=== PATIENT | male | born 1980 | race Caucasian/White ===

== ENCOUNTER 2018-11-14 14:35 | Emergency (ER) | payer BC ==
--- NOTE | 2018-11-14 14:49 | EDM.PDOC ---
ED HPI GENERAL MEDICAL PROBLEM - General Chief Complaint: ENT Problem Stated Complaint: THROAT SWELLING Time Seen by Provider: 11/14/18 14:44 Source of Information: Reports: Patient History Limitations: Reports: No Limitations - History of Present Illness INITIAL COMMENTS - FREE TEXT/NARRATIVE: HISTORY AND PHYSICAL: History of present illness: Patient is a 38-year-old male who presents to the emergency room with complaints of throat pain x 24 hours. He states he feels like his throat is swelling and is concerned he has strep throat. Reports he has had strep throat in the past and had similar symptoms at that time. He has been using NyQuil to help alleviate his symptoms but still has discomfort. States when he is laying flat he feels the swelling causes him to cough. Reports he has had a cough for several weeks, nonproductive. He is a daily smoker. He denies any fever, chills, chest pain, shortness of breath or cough. He denies any abdominal pain, nausea, vomiting, diarrhea, constipation or dysuria. He has been able to eat and drink appropriately. Review of systems: As per history of present illness and below otherwise all systems reviewed and negative. Past medical history: As per history of present illness and as reviewed below otherwise noncontributory. Surgical history: As per history of present illness and as reviewed below otherwise noncontributory. Social history: See social history for further information Family history: As per history of present illness and as reviewed below otherwise noncontributory. Physical exam: General: Well-developed and well-nourished 38-year-old male. Alert and oriented. Nontoxic appearing and in no acute distress. HEENT: Atraumatic, normocephalic, pupils equal and reactive bilaterally, negative for conjunctival pallor or scleral icterus, mucous membranes moist, TMs normal bilaterally, throat erythematous but clear without exudate, neck supple, nontender, trachea midline. No drooling or trismus noted. No meningeal signs. No hot potato voice noted. Lungs: Diminished otherwise clear, breath sounds equal bilaterally, chest nontender. Dry nonproductive cough noted, induced with deep breaths. Heart: S1S2, regular rate and rhythm without overt murmur Abdomen: Soft, nondistended, nontender. Negative for masses or hepatosplenomegaly. Negative for costovertebral tenderness. Pelvis: Stable nontender. Genitourinary: Deferred. Rectal: Deferred. Skin: Intact, warm, dry. No lesions or rashes noted. Extremities: Atraumatic, negative for cords or calf pain. Neurovascular unremarkable. Neuro: Awake, alert, oriented. Cranial nerves II through XII unremarkable. Cerebellum unremarkable. Motor and sensory unremarkable throughout. Exam nonfocal. Notes: Patient declines x-ray at this time. We'll do a strep screening, he is agreeable. Patient is adamant that this is early strep. Patient states he declines any need for steroids as he reports this flares his psoriasis. Due to the patient's coughing and smoking history will treat with Z-Aaron as he is allergic to penicillins. Supportive care measures were reviewed and discussed. He voices understanding and agreeable to plan of care. Denies any further questions or concerns at this time. Diagnostics: Strep Therapeutics: None Prescription: Zpack Tylenol #3 (#10) Impression: Pharyngitis Plan: 1. Stop smoking. Please take the antibiotic as prescribed. 2. Tylenol and/or ibuprofen as needed for pain and fever management. You may use [id number] lozenges for throat pain relief. Warm saltwater gargle rinses spit 3-4 times daily. Please continue toothbrush once you have started the antibiotic to avoid reinfection. 3. Please follow-up with your primary care provider and oriented the nuclear chemistry technician in the next 1-2 days. Return to the ED as needed and as discussed. Definitive disposition and diagnosis as appropriate pending reevaluation and review of above. Throat Pain Score (Numeric/FACES): 8 - Related Data Allergies Allergy/AdvReac Type Severity Reaction Status Date / Time Penicillins Allergy Anaphylactic Verified 11/14/18 14:42 Shock Home Meds: Home Meds . [No Known Home Meds] 11/14/18 [History] Past Medical History Dermatologic History: Reports: Other (See Below) Other Dermatologic History: psoriasis. - Infectious Disease History Infectious Disease History: Reports: None Social & Family History - Family History Family Medical History: Noncontributory - Tobacco Use Smoking Status *Q: Current Every Day Smoker Years of Tobacco use: 20 Packs/Tins Daily: 0.5 - Caffeine Use Caffeine Use: Reports: Coffee, Soda - Recreational Drug Use Recreational Drug Use: No ED ROS ENT - Review of Systems Review Of Systems: ROS reveals no pertinent complaints other than HPI. ED EXAM, ENT - Physical Exam Exam: See Below (See dictation) Course - Vital Signs Last Recorded V/S: Last Vital Signs Temp 98.9 F 11/14/18 14:42 Pulse 89 11/14/18 14:42 Resp 15 11/14/18 14:42 BP 127/81 11/14/18 14:42 Pulse Ox 96 11/14/18 14:42 - Orders/Labs/Meds Orders: Active Orders 24 hr Category Date Time Status CULTURE STREP A CONFIRMATION [RM] Stat Lab 11/14/18 15:00 Results STREP SCRN A RAPID W CULT CONF [RM] Stat Lab 11/14/18 15:00 Results Departure - Departure Time of Disposition: 15:19 Disposition: Home, Self-Care 01 Clinical Impression: Pharyngitis Qualifiers: Pharyngitis/tonsillitis etiology: unspecified etiology Qualified Code(s): J02.9 - Acute pharyngitis, unspecified - Discharge Information Instructions: Pharyngitis, [id number] Forms: ED Department Discharge Additional Instructions: The following information is given to patients seen in the emergency department who are being discharged to home. This information is to outline your options for follow-up care. We provide all patients seen in our emergency department with a follow-up referral. The need for follow-up, as well as the timing and circumstances, are variable depending upon the specifics of your emergency department visit. If you don't have a primary care physician on staff, we will provide you with a referral. We always advise you to contact your personal physician following an emergency department visit to inform them of the circumstance of the visit and for follow-up with them and/or the need for any referrals to a consulting specialist. The emergency department will also refer you to a specialist when appropriate. This referral assures that you have the opportunity for follow-up care with a specialist. All of these measure are taken in an effort to provide you with optimal care, which includes your follow-up. Under all circumstances we always encourage you to contact your private physician who remains a resource for coordinating your care. When calling for follow-up care, please make the office aware that this follow-up is from your recent emergency room visit. If for any reason you are refused follow-up, please contact the [facility] Emergency Department at and asked to speak to the emergency department charge nurse. [facility] [address] [place] [address] [facility] [address] [place] [address] 1. Stop smoking. Please take the antibiotic as prescribed. 2. Tylenol and/or ibuprofen as needed for pain and fever management. Tylenol with Codeine for moderate to severe pain, may cause drowsiness so do not take while driving or needing to functioning outside the house. You may use over-the- counter lozenges for throat pain relief. Warm saltwater gargle rinses spit 3-4 times daily. Please continue toothbrush once you have started the antibiotic to avoid re-infection. 3. Please follow-up with your primary care provider and oriented the nuclear chemistry technician in the next 1-2 days. Return to the ED as needed and as discussed. - My Orders Last 24 Hours: My Active Orders 11/14/18 15:00 CULTURE STREP A CONFIRMATION [RM] Stat STREP SCRN A RAPID W CULT CONF [RM] Stat - Assessment/Plan Last 24 Hours: My Active Orders 11/14/18 15:00 CULTURE STREP A CONFIRMATION [RM] Stat STREP SCRN A RAPID W CULT CONF [RM] Stat
== END 2018-11-14 15:31 | disposition home or self-care (01) ==
LOC: MW.ED 14:35
DX: J02.9 Acute pharyngitis, unspecified (principal); F17.210 Nicotine dependence, cigarettes, uncomplicated; Z88.0 Allergy status to penicillin
CPT/HCPCS: 87081; 87880-QW; 99283